=== PATIENT | female | born 1980 | race Two or more races ===

== ENCOUNTER 2018-11-04 20:12 | Emergency (ER) | payer OTHER ==
[2018-11-04] MEDS ORDERED: methylPREDNISolone SOD SUCC 125 MG/2 ML VIAL IVP ONE (20:18)
[2018-11-04] MEDS ORDERED: FAMOTIDINE 20 MG TAB PO ONE (20:18)
[2018-11-04] MEDS ORDERED: NS 1,000 ML IV ONE (20:18)
--- NOTE | 2018-11-04 20:28 | EDPHY ---
General Time Seen by Provider: 11/04/18 20:18 Narrative: CLINICAL IMPRESSION: Anaphylaxis secondary to bee sting ASSESSMENT/PLAN: Patient is a 37-year-old female with a history of depression presents to the emergency department after experiencing an allergic reaction secondary to bee sting. Received 0.3 mg epi and 50 mg of Benadryl prior to arrival. Patient is noted to be tachycardic on arrival, no evidence of hypotension. Physical exam reveals bilateral upper lid swelling, no evidence of oral angioedema, hypoxia or respiratory distress. Patient also with localized edema and hyperemia to left hand at sting site, urticarial reaction left upper extremity, chest and abdomen. Patient with no personal history of anaphylaxis however strong family history. Patient was additionally given Solu-Medrol and Pepcid while in the emergency department, she was observed and after 2 hours of observation she was noted to have increased edema and redness at the site of her sting. A cool compress was applied and she was given 25 mg of Benadryl. Patient was observed for another 2 hr with improvement of her symptoms and no progression of swelling or urticarial reaction. On repeat examination and prior to discharge the patient is well-appearing with very minimal eyelid edema, no obvious residual urticarial reaction and stable appearance of her left hand swelling and hyperemia. Her vital signs remained stable. There was no evidence of anaphylactic shock, medication reaction, TENS/SJS, rebound reaction or infectious process. The patient was given a new prescription for her EpiPen, she will continue prednisone, Zyrtec and Benadryl as needed for the next several days. She is well established with her primary care provider although we do not have 1 listed for her. She understands the importance of close follow -up and will call 1st thing Tuesday morning to schedule an appointment for follow -up. Very conservative return precautions were discussed with this patient- patient will return for any recurrent facial swelling, oral swelling, difficulty swallowing, progression of her rash, increased swelling of her left hand or for any other concerning symptom. Patient verbalizes understanding and she is in agreement with this plan. DIFFERENTIAL DX: Differential diagnosis including but not limited to anaphylaxis, urticaria, TENS /SJS, medication reaction, infectious process ED COURSE: 2219: Case discussed with Dr. Gan 2240: On repeat examination the patient is much more comfortable appearing, heart rate is trending down at 100. Eyelid swelling is continuing to improve, rash also continuing to improve. 2116: On repeat examination the patient continues to feel better, rashes continuing to improve however still present. Patient with mild right upper lid edema. 2214: On repeat examination the patient is starting to have recurrent swelling of her left hand at the site of the sting. She reports that she is feeling better however still has bilateral upper lid edema, conjunctival injection and faint rash along left forearm and neck. 0001: On repeat examination the patient reports that she is actually feeling much better. Her left hand still is mildly edematous with erythema however there has been no progression. Feel comfortable at this point with discharged home with conservative return precautions. CHIEF COMPLAINT: Allergic reaction HPI: Patient is a 37-year-old female with a history of depression presents to the emergency department by ambulance after having an allergic reaction to bee stings. 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 Patient does not have a personal history of anaphylaxis however does have an extensive family history of allergies to bee stings and was subsequently prescribed an EpiPen prophylactically. She used her EpiPen immediately at onset of symptoms, 911 was called. On their arrival the patient was noted to have generalized hives, they additionally gave her 50 mg of IV Benadryl. The patient reports improvement of her symptoms since onset, she complains of itchy rash mostly on her left arm, neck and torso. She reports that her facial swelling is improving, she is no longer experiencing any difficulty swallowing and denies any difficulty breathing. She has had no nausea or vomiting, she denies any abdominal pain. She was able to visualize the stinger and remove it prior to arrival. PMH: Depression Family History: Not contributory Social History: Denies REVIEW OF SYSTEMS: All other systems negative Constitutional: No fever, no chills, appetite change. Eyes: No discharge, vision change ENT: Trouble swallowing. Cardiovascular: No chest pain, no palpitations. Respiratory: No cough, no shortness of breath. Gastrointestinal: No abdominal pain, no vomiting, diarrhea. Genitourinary: No hematuria, dysuria, flank pain, pelvic pain Musculoskeletal: No back pain, joint swelling, joint pain, myalgias. Skin: Rash Neurological: No headache, dizziness, weakness. PHYSICAL EXAM: General Appearance: Shaky, not toxic-appearing. HENT: Normocephalic, atraumatic. Bilateral external ears are normal. Bilateral tympanic membranes are normal with pearly paz reflex. Nares are clear, mucosa is pink. Oropharynx is clear, uvula is midline. Posterior pharynx is clear. Her phonation is normal, there is no stridor. There is no evidence of angioedema. There is no tonsillar enlargement or exudate. The dentition is normal. Eyes: PERRLA, EOMI. Conjunctiva pink with mild injection, no pallor. Patient with upper eyelid swelling bilaterally, right greater than the left. Neck: Supple, nontender, no lymphadenopathy, no midline pain, FROM, no meningismus. Hyperemia along anterior neck and chest. Respiratory: There are no retractions, lungs are clear to auscultation. Cardiac: Regular rate and rhythm, no murmurs or gallops. Gastrointestinal: Abdomen is soft, nontender, bowel sounds normal, no masses/ hernia, no rigidity, guarding or focal peritoneal findings. Neurological: Alert and oriented x 3, CN 2-12 grossly intact, normal gait no ataxia, DTR's intact, normal sensation and strength Skin: Warm, dry. Raise. hyperemic rash along left upper extremity and torso. Musculoskeletal: Extremities are symmetrical, full range of motion, no tenderness, deformity, swelling, or erythema. Psychiatric: Patient is oriented X 3, there is no agitation. MEDICAL DECISION MAKING: Patient was seen independently. Secondary supervising physician at time of evaluation was Dr. Gan, he also evaluated this patient. Diagnosis: Anaphylaxis. New, requires workup Summary: See Assessment and Plan for summary of ED visit Clinical lab tests: Not applicable. Independent visualization of images, tracing, or specimens: Yes. Decision to obtain medical records or history from someone other than the patient: Yes, EMS Review / Summarize previous medical records: Yes Discussed patient with another provider: Yes, Dr. Gan Patient Progress: Stable, discharge. - Objective Vital Signs: Initial Vital Signs Temperature (C) 37.1 C 11/04/18 20:17 Heart Rate 98 11/04/18 20:17 Respiratory Rate 20 11/04/18 20:17 Blood Pressure 120/86 H 11/04/18 20:17 O2 Sat (%) 96 11/04/18 20:17 O2 Delivery Mode Room Air Allergies/Adverse Reactions: bee venom protein (honey bee) Allergy (Verified 11/04/18 20:20) Home Medications: Medication Instructions Recorded EPINEPHrine KIT [Epipen Kit] 0.3 mg IM ONCE PRN #1 inj 11/04/18 FLUoxetine 11/04/18 Xanax 11/04/18 methylPREDNISolone [Medrol Dose 1 each PO AD #1 ea 11/04/18 [place]] Medications Given: Discontinued Medications Diphenhydramine HCl (Benadryl Injection) 25 mg IVP EDNOW ONE Stop: 11/04/18 22:14 Last Admin: 11/04/18 22:17 Dose: 25 mg Famotidine (Pepcid) 40 mg PO EDNOW ONE Stop: 11/04/18 20:19 Last Admin: 11/04/18 20:24 Dose: 40 mg Sodium Chloride (Ns) 1,000 mls @ 0 mls/hr IV ONCE ONE; Wide Open PRN Reason: Protocol Stop: 11/04/18 20:19 Last Admin: 11/04/18 20:25 Dose: 1,000 mls Methylprednisolone Sodium Succinate (Solu-Medrol) 125 mg IVP EDNOW ONE Stop: 11/04/18 20:19 Last Admin: 11/04/18 20:24 Dose: 125 mg Departure - Departure Disposition: Home, Routine, Self-Care Clinical Impression: Anaphylactic reaction Qualifiers: Encounter type: initial encounter Qualified Code(s): T78.2XXA - Anaphylactic shock, unspecified, initial encounter Condition: Good Instructions: Anaphylaxis (ED) Additional Instructions: DISCHARGE INSTRUCTIONS FROM YOUR DOCTOR Thank you for visiting our emergency department today. Please keep in mind that discharge from the emergency department does not mean that there is nothing wrong - it simply means that we have not identified an emergency condition that requires further evaluation or treatment in the hospital. You should always plan to follow up with primary care for re-evaluation of your condition in the next 2-3 days. Continue cool compress on your hand until improved. Rest, push fluid, healthy diet. Wear loose fitting clothing. Use hypoallergenic skin products. Apply a lot of moisturizer, often. Consider aveeno oatmeal baths, cool water if itching. Medrol dosepack/Prednisone (steroid) starting tomorrow. Pepcid 40 mg daily as directed starting tomorrow. Benadryl over the counter 25 mg every 6 hours as needed for itching and hives. Recommend taking the antihistamine for the next 24 hours with regular dosing then as needed. Zyrtec daily, take as directed. User EpiPen as needed. Return for increased rash, new type of skin lesions, sores in or around the eyes , other eye complaints, development of fever, shaking chills, facial swelling, arm or leg swelling, difficulty breathing or swallowing, sore throat, severe headache, neck pain or stiffness, vomiting, dizziness, weakness, cough, wheezing , bloody urine, decreased urine output, chest pain, abdominal pain, pain, redness/swelling around any of the areas scratched, joint redness or swelling, or for any other new, worsening or worrisome symptoms. People present with illnesses and injuries in different ways, and it is always possible that we have missed something. You may always return for re-evaluation if symptoms worsen or if they are not improving or if you develop new/different symptoms. Again, thank you for choosing our emergency department. We hope that you feel better. Referrals: Shelly Flores MD [Medical Doctor] - As per Instructions (Please establish care with a primary care provider.) Prescriptions: EPINEPHrine KIT [Epipen Kit] 0.3 mg IM ONCE PRN #1 inj PRN Reason: Rash methylPREDNISolone [Medrol Dose [place]] 1 each PO AD #1 ea
[2018-11-05] VITALS: BP 119/78
== END 2018-11-05 00:10 | disposition home or self-care (01) ==
DX: T78.2XXA Anaphylactic shock, unspecified, initial encounter (principal); W57.XXXA Bitten or stung by nonvenomous insect and other nonvenomous arthropods, initial encounter; Y92.214 College as the place of occurrence of the external cause; Y99.0 Civilian activity done for income or pay
CPT/HCPCS: 96374; J1200; J2930